=== PATIENT | male | born 1950 | race Caucasian/White ===

== ENCOUNTER 2019-09-19 19:59 | Inpatient (IN) | payer OTHER ==
--- OUTSIDE RECORDS SUMMARY | 2019-09-19 20:01 | XMS REPORT ---
:1950 [facility] Address [address] [place] [address] Care Team Providers Name Role Phone Unavailable Unavailable Unavailable Payers Payer Name Policy Type Policy Number Effective Date Expiration Date Problems This patient has no known problems. Allergies, Adverse Reactions, Alerts Allergy Name Allergy Status Severity Reaction(s) Onset Inactive Treating Comments Type Date Date Clinician Penicillins DA Active U 2014-03 00:00:0 0 Tetanus DA Active U 2014-03 Toxoid 00:00:0 0 Medications This patient has no known medications.
[2019-09-19] MEDS ORDERED: NA CHLORIDE 0.9% 1,000 ML ONE (20:40)
[2019-09-19 21:27] LABS: Absolute Lymphocytes (CBC) 0.6 K/uL (0.7-4.9); Basophils % 0.4 % (0-1.3); Hematocrit 41.1 % (39.6-49.0); Lymphocytes % 8.5 % (15.3-44.8); MPV 10.1 fL (7.6-11.3); RBC Red Blood Cell Count 4.35 M/uL (4.33-5.43)
--- NOTE | 2019-09-19 21:40 | RAD REPORT ---
EXAM DESCRIPTION: Jesusita Single View09/19/2019 8:52 pm CLINICAL HISTORY: Chest pain COMPARISON: none FINDINGS: The lungs appear clear of acute infiltrate. The heart is borderline enlarged IMPRESSION: No acute abnormalities displayed
[2019-09-19 21:43] LABS: Protime INR 2.59
[2019-09-19 21:44] LABS: ALT/SGPT 19 U/L (12-78); AST/SGOT 19 U/L (15-37); Albumin 3.6 g/dL (3.4-5.0); Alkaline Phosphatase 77 U/L (45-117); BUN Blood Urea Nitrogen 17 mg/dL (7-18); Bicarbonate 27 mmol/L (21-32); Bilirubin Direct 0.4 mg/dL (0-0.2); Bilirubin Total 1.6 mg/dL (0.2-1.0); Glucose Level 105 mg/dL (74-106); Magnesium 1.9 mg/dL (1.8-2.4); NT PRO-BNP 6781 pg/mL (<125); Protein, Total 6.8 g/dL (6.4-8.2); Sodium Level 136 mmol/L (136-145); Troponin (Emerg Dept Use Only) < 0.02 ng/mL (0.0-0.045)
[2019-09-19 21:45] LABS: CKMB Creatine Kinase MB < 1.0 ng/mL (0.3-3.6); Creatine Phosphokinase 152 U/L (39-308); Lipase 36 U/L (73-393)
--- NOTE | 2019-09-19 23:16 | ER ---
Nurse's Notes [facility] Name: Selvin Krause Jr Age: 69 yrs Sex: Male : 1950 Arrival Date: 09/19/2019 Time: 20:06 Bed 20 Private MD: Diagnosis: Altered mental status, unspecified Presentation: 09/19 20:20 Presenting complaint: EMS states: family member reported the patient having the rr5 generalized weakness around 0930 am today. not ambulatory having the tremors feels warm. He is AOx4 T 99.0 F on oral. hooked to oxygen at at 2 liter via nasal cannula and with IV cannula G 20 at right wrist. 20:20 Transition of care: patient was not received from another setting of care. Onset of rr5 symptoms was September 19, 2019 at 09:30. Risk Assessment: Do you want to hurt yourself or someone else? Patient reports no desire to harm self or others. Initial Sepsis Screen: Does the patient meet any 2 criteria? RR > 20 per min. HR > 90 bpm. Yes Does the patient have a suspected source of infection? Yes: Productive cough/pneumonia. Note per EMS patient taking blood thinner had history of stroke 1 year ago and hospital DNR. patient's heart working only 20% refused to have cardiac defibrillator. [id number]. he is on hospital DNR. Care prior to arrival: None. 20:20 Method Of Arrival: EMS: [facility] rr5 20:20 Acuity: KWAME 2 rr5 Historical: - Allergies: 20:25 PENICILLINS; rr5 20:25 Tetanus Vaccines \T\ Toxoid; rr5 - Home Meds: 20:25 on blood thinners [Active]; rr5 - PMHx: 20:25 CHF; Diabetes - NIDDM; hypotension; rr5 - PSHx: 20:25 Angioplasty; rr5 - Immunization history:: Adult Immunizations up to date. - Social history:: Smoking status: Patient uses tobacco products, smokes two packs cigarettes per day. Patient uses alcohol, on a daily basis. Patient/guardian denies using street drugs. - Ebola Screening: : Patient negative for fever greater than or equal to 101.5 degrees Fahrenheit, and additional compatible Ebola Virus Disease symptoms Patient denies exposure to infectious person Patient denies travel to an Ebola-affected area in the 21 days before illness onset. Screenin:20 VAN Screening: Arm Drift: Patient shows no arm weakness. Patient is VAN negative. rr5 20:20 Abuse screen: Denies threats or abuse. Denies injuries from another. Nutritional rr5 screening: No deficits noted. Tuberculosis screening: No symptoms or risk factors identified. Fall Risk IV access (20 points). Mental Status- Overestimates/Forgets Limitations (15 pts.). Total Cash Fall Scale indicates No Risk (0-24 pts). Assessment: 20:25 General: Appears in no apparent distress. uncomfortable, Behavior is calm, cooperative. rr5 20:25 Pain: Denies pain. Neuro: Level of Consciousness is awake, alert, obeys commands, rr5 Oriented to person, Moves all extremities. Speech is normal, Facial symmetry appears normal, tremors noted. Reports weakness in generalized unable to ambulate. Cardiovascular: Capillary refill < 3 seconds Patient's skin is warm and dry. Respiratory: Airway is patent Respiratory effort is even, unlabored, Respiratory pattern is tachypnea Parent/caregiver reports the patient having cough that is. GI: No signs and/or symptoms were reported involving the gastrointestinal system. : No signs and/or symptoms were reported regarding the genitourinary system. EENT: No signs and/or symptoms were reported regarding the EENT system. Derm: Skin is fragile, is thin, Skin temperature is warm Bruising that is dark purple, on right arm and left arm. Musculoskeletal: Capillary refill < 3 seconds. 20:55 Reassessment: ED provider ordered to infused 1 liter of NS not the whole sepsis rr5 protocol fluid. 21:30 Reassessment: Patient appears in no apparent distress at this time. No changes from rr5 previously documented assessment. awaiting for results. 22:30 Reassessment: Patient appears in no apparent distress at this time. Patient and/or rr5 family updated on plan of care and expected duration. Pain level reassessed. Patient is alert, oriented x 3, equal unlabored respirations, skin warm/dry/pink. ED provider added ammonia level blood extracted and sent. patient is more alert and not in distress noted. 23:20 Reassessment: Patient appears in no apparent distress at this time. Patient is alert, rr5 oriented x 3, equal unlabored respirations, skin warm/dry/pink. for CT scan of the head. Patient states symptoms have improved. 23:37 Reassessment: Patient and/or family updated on plan of care and expected duration. Pain rr5 level reassessed. family member contact number. [phone] velma ( x and has the power of state attorney), [phone] daniel daughter. 09/20 00:25 Reassessment: Patient appears in no apparent distress at this time. Patient is alert, rr5 oriented x 3, equal unlabored respirations, skin warm/dry/pink. for admission awaiting for room assignment. Patient states symptoms have improved. Vital Signs: 09/19 20:25 BP 110 / 57; Pulse 98; Resp 24; Temp 100; Pulse Ox 98% on 2 lpm NC; Weight 49.9 kg; rr5 Height 5 ft. 2 in. (157.48 cm); Pain 0/10; 21:18 BP 98 / 52; Pulse 95; Resp 23; Pulse Ox 99% on 2 lpm NC; rr5 22:00 BP 99 / 59; Pulse 102; Resp 24; Temp 99.5; Pulse Ox 100% on 2 lpm NC; rr5 23:00 BP 96 / 55; Pulse 90; Resp 18; Pulse Ox 98% on 2 lpm NC; rr5 09/20 00:00 BP 101 / 56; Pulse 92; Resp 20; Temp 99.5; Pulse Ox 98% on 2 lpm NC; rr5 00:56 BP 104 / 63; Pulse 95; Resp 21; Temp 99.2; Pulse Ox 99% on 2 lpm NC; Pain 0/10; rr5 01:30 BP 101 / 53; Pulse 86; Resp 22; Temp 99.2; Pulse Ox 98% on 2 lpm NC; rr5 09/19 20:25 Body Mass Index 20.12 (49.90 kg, 157.48 cm) rr5 Arnie Coma Score: 09/19 20:25 Eye Response: spontaneous(4). Verbal Response: confused(4). Motor Response: obeys rr5 commands(6). Total: 14. 09/20 00:00 Eye Response: spontaneous(4). Verbal Response: confused(4). Motor Response: obeys rr5 commands(6). Total: 14. 01:30 Eye Response: spontaneous(4). Verbal Response: confused(4). Motor Response: obeys rr5 commands(6). Total: 14. ED Course: 09/19 20:06 Patient arrived in ED. tw4 20:10 Arnold Oliva MD is Attending Physician. tw4 20:20 Shadi Pandya, RN is Primary Nurse. rr5 20:20 Patient has correct armband on for positive identification. Placed in gown. Bed in low rr5 position. Call light in reach. Side rails up X2. Adult w/ patient. monitor technician on. Pulse ox on. NIBP on. 20:20 Arm band placed on. rr5 20:21 Maintain EMS IV. Dressing intact. Good blood return noted. Site clean \T\ dry. Gauge \T\ rr 5 site: G20 right wrist. 20:25 EKG done, by ED staff, reviewed by Arnold Oliva MD. rr5 20:25 Oxygen administration via nasal cannula \T\ 2L/min Response to oxygen therapy: symptoms rr5 improved. 20:31 Triage completed. rr5 20:53 XRAY Chest (1 view) In Process Unspecified. EDMS 21:05 Inserted saline lock: 20 gauge in right forearm, using aseptic technique. Blood rr5 collected. 21:05 Initial lab(s) drawn, by me, sent to lab. First set of blood cultures drawn by me. rr5 23:15 Bob Rosenbaum MD is Hospitalizing Provider. tw4 09/20 00:03 CT completed. Patient tolerated procedure well. Patient moved to CT via stretcher. Patient moved back from CT. 00:16 CT Head Brain wo Cont In Process Unspecified. EDMS 01:31 No provider procedures requiring assistance completed. Patient admitted, IV remains in rr5 place. intact, No redness/swelling at site. Administered Medications: 09/19 21:05 Drug: NS 0.9% (30 ml/kg) 30 ml/kg Route: IV; Rate: bolus; Site: right forearm; rr5 23:31 Follow up: Response: No adverse reaction; IV Status: Order to discontinue infusion; IV rr5 Intake: 1000ml Intake: 23:31 IV: 1000ml; Total: 1000ml. rr5 Output: 21:30 Urine: 400ml (Voided); Total: 400ml. rr5 Outcome: 23:16 Decision to Hospitalize by Provider. tw4 12/19 01:40 Admitted to Med/surg accompanied by tech, via wheelchair, room 211, with oxygen, with rr5 chart, Report called to verito Condition: stable Instructed on the need for admit. 02:12 Patient left the ED. rr5 Signatures: Dispatcher [employer] Tristen Dooley Terrence, MD MD tw4 Shadi Pandya RN RN rr5 Corrections: (The following items were deleted from the chart) 09/19 20:46 20:25 BP 110 / 57; Pulse 98bpm; Resp 24bpm; Pulse Ox 98% RA; Temp 100F; 49.9 kg; Height rr5 5 ft. 2 in.; BMI: 20.1; Pain 0/10; rr5 21:41 21:18 BP 68 / 52; Pulse 95bpm; Resp 23bpm; Pulse Ox 99% 2 lpm Nasal Cannula; rr5 rr5 09/20 01:40 09/19 20:25 GCS: 15, rr5 rr5 09/20 01:40 01:30 GCS: 15, rr5 rr5 :40 00:00 GCS: 15, rr5 rr5 01:40 09/19 20:25 Neuro: Level of Consciousness is awake, alert, Oriented to person, place, rr5 time, situation, Moves all extremities. Speech is normal, Facial symmetry appears normal, tremors noted. Reports weakness in generalized unable to ambulate. rr5
[2019-09-19 23:17] LABS: Urine Bacteria <20 /HPF (NONE SEEN); Urine Culture Reflex Order NOT NEEDED; Urine Mucus 1+ /HPF (NONE SEEN)
--- NOTE | 2019-09-19 23:17 | EDPHYS ---
Physician Documentation [facility] Name: Selvin Krause Jr Age: 69 yrs Sex: Male : 1950 Arrival Date: 09/19/2019 Time: 20:06 Bed 20 Private MD: ED Physician Arnold Oliva HPI: 09/20 03:39 This 69 yrs old Male presents to ER via EMS with complaints of General tw4 Weakness. 03:39 The patient presents with decreased mental status, decreased responsiveness. Onset: The tw4 symptoms/episode began/occurred today. Possible causes: sepsis, liver cirrhosis. Associated signs and symptoms: Pertinent positives: dizziness, weakness. Current symptoms: In the emergency department the patient's symptoms are unchanged from the initial presentation. Patient's baseline: Neuro: alert and fully oriented, Motor: no deficits, Ambulation: walks with assist only. The patient has experienced similar episodes in the past, a few times. Historical: - Allergies: 09/19 20:25 PENICILLINS; rr5 20:25 Tetanus Vaccines \T\ Toxoid; rr5 - Home Meds: 20:25 on blood thinners [Active]; rr5 - PMHx: 20:25 CHF; Diabetes - NIDDM; hypotension; rr5 - PSHx: 20:25 Angioplasty; rr5 - Immunization history:: Adult Immunizations up to date. - Social history:: Smoking status: Patient uses tobacco products, smokes two packs cigarettes per day. Patient uses alcohol, on a daily basis. Patient/guardian denies using street drugs. - Ebola Screening: : Patient negative for fever greater than or equal to 101.5 degrees Fahrenheit, and additional compatible Ebola Virus Disease symptoms Patient denies exposure to infectious person Patient denies travel to an Ebola-affected area in the 21 days before illness onset. ROS: 09/20 03:39 Constitutional: Negative for fever, chills, and weight loss, Eyes: Negative for injury, tw4 pain, redness, and discharge, Cardiovascular: Negative for chest pain, palpitations, and edema, Respiratory: Negative for shortness of breath, cough, wheezing, and pleuritic chest pain, Abdomen/GI: Negative for abdominal pain, nausea, vomiting, diarrhea, and constipation, Back: Negative for injury and pain, MS/Extremity: Negative for injury and deformity, Skin: Negative for injury, rash, and discoloration. Neuro: Positive for altered mental status, weakness. Exam: 03:39 Constitutional: This is a well developed, well nourished patient who is awake, alert, tw4 and in no acute distress. Head/Face: Normocephalic, atraumatic. Chest/axilla: Normal chest wall appearance and motion. Nontender with no deformity. No lesions are appreciated. Cardiovascular: Regular rate and rhythm with a normal S1 and S2. No gallops, murmurs, or rubs. Normal PMI, no JVD. No pulse deficits. Respiratory: Lungs have equal breath sounds bilaterally, clear to auscultation and percussion. No rales, rhonchi or wheezes noted. No increased work of breathing, no retractions or nasal flaring. 03:39 Neuro: Orientation: to person, Mentation: slow to respond, confused, Motor: moves all fours, resting tremor right upper extremity . Vital Signs: 09/19 20:25 BP 110 / 57; Pulse 98; Resp 24; Temp 100; Pulse Ox 98% on 2 lpm NC; Weight 49.9 kg; rr5 Height 5 ft. 2 in. (157.48 cm); Pain 0/10; 21:18 BP 98 / 52; Pulse 95; Resp 23; Pulse Ox 99% on 2 lpm NC; rr5 22:00 BP 99 / 59; Pulse 102; Resp 24; Temp 99.5; Pulse Ox 100% on 2 lpm NC; rr5 23:00 BP 96 / 55; Pulse 90; Resp 18; Pulse Ox 98% on 2 lpm NC; rr5 09/20 00:00 BP 101 / 56; Pulse 92; Resp 20; Temp 99.5; Pulse Ox 98% on 2 lpm NC; rr5 00:56 BP 104 / 63; Pulse 95; Resp 21; Temp 99.2; Pulse Ox 99% on 2 lpm NC; Pain 0/10; rr5 01:30 BP 101 / 53; Pulse 86; Resp 22; Temp 99.2; Pulse Ox 98% on 2 lpm NC; rr5 09/19 20:25 Body Mass Index 20.12 (49.90 kg, 157.48 cm) rr5 Clyde Coma Score: 09/19 20:25 Eye Response: spontaneous(4). Verbal Response: confused(4). Motor Response: obeys rr5 commands(6). Total: 14. 09/20 00:00 Eye Response: spontaneous(4). Verbal Response: confused(4). Motor Response: obeys rr5 commands(6). Total: 14. 01:30 Eye Response: spontaneous(4). Verbal Response: confused(4). Motor Response: obeys rr5 commands(6). Total: 14. MDM: 09/19 20:10 Patient medically screened. tw09/20 03:44 Differential Diagnosis: CVA, electrolyte abnormality, intracranial bleed, meningitis, tw4 pneumonia. Data reviewed: vital signs, nurses notes. Data interpreted: Pulse oximetry: Interpretation: normal. Test interpretation: by ED physician or midlevel provider: ECG. Counseling: I had a detailed discussion with the patient and/or guardian regarding: the historical points, exam findings, and any diagnostic results supporting the discharge/admit diagnosis, lab results, radiology results. Physician consultation: Bob Rosenbaum MD regarding admission, to the telemetry unit. patient's condition, and will see patient in inpatient room. 09/19 20:10 Order name: Basic Metabolic Panel; Complete Time: 21:56 09/19 21:56 Interpretation: Normal except: GFR 69; CA 8.4. 09/19 20:10 Order name: CBC with Diff; Complete Time: 21:56 09/19 21:56 Interpretation: Normal except: TAMMIE% 83.0; PLT 119; LYM% 8.5. 09/19 20:10 Order name: LFT's; Complete Time: 21:56 09/19 21:57 Interpretation: Normal except: BILIT 1.6; BILID 0.4. 09/19 20:10 Order name: Magnesium; Complete Time: 21:56 [facility] 09/19 21:57 Interpretation: Within normal limits: MG 1.9. 09/19 20:10 Order name: NT PRO-BNP; Complete Time: 21:56 tw 09/19 21:57 Interpretation: Normal except: NT PRO-BNP 6781. 09/19 20:10 Order name: PT-INR; Complete Time: 21:56 09/19 21:57 Interpretation: Normal except: PT 29.5. tw4 09/19 20:10 Order name: Troponin (emerg Dept Use Only); Complete Time: 21:56 [facility] 09/19 21:57 Interpretation: Within normal limits: TROPED < 0.02. [facility] 09/19 20:32 Order name: Blood Culture Adult (2) [facility] 09/19 20:32 Order name: Ckmb; Complete Time: 21:56 rr 09/19 21:57 Interpretation: Within normal limits: CKMB < 1.0. [facility] 09/19 20:32 Order name: CPK; Complete Time: 21:56 [facility] 09/19 21:58 Interpretation: Within normal limits: CPK 152. [facility] 09/19 20:32 Order name: Lactate; Complete Time: 21:56 [facility] 09/19 21:58 Interpretation: Within normal limits: LAC 1.6. [facility] 09/19 20:32 Order name: Lipase; Complete Time: 21:56 [facility] 09/19 21:57 Interpretation: Normal except: LIP 36. [facility] 09/19 20:32 Order name: Procalcitonin [facility] 09/19 20:32 Order name: Ptt, Activated [facility] 09/19 20:10 Order name: XRAY Chest (1 view) [facility] 09/19 20:32 Order name: Urine Microscopic Only [facility] 09/19 21:58 Order name: AMMONIA [facility] 09/19 21:59 Order name: Ammonia; Complete Time: 23:14 EDMS 09/19 23:14 Interpretation: Abnormal. [facility] 09/19 22:48 Order name: Urine Dipstick--Ancillary (enter results) [facility] 09/19 23:15 Order name: CT Head Brain wo Cont tw4 09/20 00:50 Order name: CBC with Automated Diff EDMS 09/20 00:50 Order name: CBC with Automated Diff EDMS 09/20 00:50 Order name: CBC with Automated Diff EDMS 09/20 00:50 Order name: Comprehensive Metabolic Panel EDMS 09/20 00:50 Order name: Comprehensive Metabolic Panel EDMS 09/20 00:50 Order name: Comprehensive Metabolic Panel EDMS 09/20 00:50 Order name: Protime (+INR) EDMS 09/20 00:50 Order name: Protime (+INR) EDMS 09/20 00:50 Order name: PTT, Activated Partial Thromb EDMS 09/20 00:50 Order name: PTT, Activated Partial Thromb EDMS 09/19 20:10 Order name: EKG; Complete Time: 20:11 tw4 09/19 20:10 Order name: Cardiac monitoring; Complete Time: 20:49 tw4 09/19 20:10 Order name: EKG - Nurse/Tech; Complete Time: 20:49 tw4 09/19 20:10 Order name: IV Saline Lock; Complete Time: 21:14 tw4 09/19 20:10 Order name: Labs collected and sent; Complete Time: 20:49 tw4 09/19 20:10 Order name: O2 Per Protocol; Complete Time: 20:49 tw4 09/19 20:10 Order name: O2 Sat Monitoring; Complete Time: 20:50 tw4 09/19 20:32 Order name: Accucheck; Complete Time: 21:14 rr5 09/19 20:32 Order name: IV Saline Lock - Large Bore; Complete Time: 20:49 rr5 09/19 20:32 Order name: Urine Dipstick-Ancillary (obtain specimen); Complete Time: 22:40 rr5 09/20 00:50 Order name: CONS Pharmacy Consult EDMS 09/20 00:50 Order name: Heart Healthy EDMS EC:39 Rate is 98 beats/min. Rhythm is irregularly irregular, A fib. QRS [place] is Normal. [place] tw4 interval is normal. QRS interval is normal. QT interval is normal. No Q waves. T waves are Flattened in leads V3, V4, V5, V6. No ST changes noted. Clinical impression: NSR w/ Non-specific ST/T Changes and Atrial Fibrillation. Interpreted by me. Reviewed by me. Administered Medications: 09/19 21:05 Drug: NS 0.9% (30 ml/kg) 30 ml/kg Route: IV; Rate: bolus; Site: right forearm; rr5 23:31 Follow up: Response: No adverse reaction; IV Status: Order to discontinue infusion; IV rr5 Intake: 1000ml Disposition: 09/19/19 23:16 Hospitalization ordered by Bob Rosenbaum for Inpatient Admission. Preliminary diagnosis is Altered mental status, unspecified. - Bed requested for Telemetry/MedSurg (Inpatient). - Status is Inpatient Admission. rr5 - Condition is Stable. - Problem is new. - Symptoms are unchanged. UTI on Admission? No Signatures: Dispatcher [employer] EDMS Martha Zendejas RN RN tl1 Arnold Oliva MD MD tw4 Shadi Pandya RN RN rr5 Corrections: (The following items were deleted from the chart) 09/20 01:21 09/19 23:16 Hospitalization Ordered by Bob Rosenbaum MD for Inpatient Admission. tl1 Preliminary diagnosis is Altered mental status, unspecified. Bed requested for Telemetry/MedSurg (Inpatient). Status is Inpatient Admission. Condition is Stable. Problem is new. Symptoms are unchanged. UTI on Admission? No. tw4 09/20 02:12 01:21 09/19/2019 23:16 Hospitalization Ordered by Bob Rosenbaum MD for Inpatient rr5 Admission. Preliminary diagnosis is Altered mental status, unspecified. Bed requested for Telemetry/MedSurg (Inpatient). Status is Inpatient Admission. Condition is Stable. Problem is new. Symptoms are unchanged. UTI on Admission? No. tl1
[2019-09-19 23:18] LABS: Urine Blood 2+ (NEG); Urine Glucose NEGATIVE (NEG); Urine Protein NEGATIVE (NEG); Urine Specific Gravity 1.025 (1.005-1.030); Urine pH 5.5 (5.0-7.0)
[2019-09-20] MEDS ORDERED: ONDANSETRON 4 MG/2 ML VIAL IV PRN (00:45)
[2019-09-20] MEDS ORDERED: MORPHINE 2 MG/ML SYR IV PRN (00:45)
[2019-09-20] MEDS: ACETAMINOPHEN 500 MG TAB PO PRN ×2 (02:33→11:04)
[2019-09-20 05:38] LABS: Absolute Lymphocytes (CBC) 0.7 K/uL (0.7-4.9); Basophils % 0.3 % (0-1.3); Lymphocytes % 10.2 % (15.3-44.8); MPV 10.4 fL (7.6-11.3); RBC Red Blood Cell Count 3.72 M/uL (4.33-5.43)
[2019-09-20 05:51] LABS: Albumin 3.1 g/dL (3.4-5.0); Bilirubin Total 1.5 mg/dL (0.2-1.0); Potassium 3.8 mmol/L (3.5-5.1); Protein, Total 5.9 g/dL (6.4-8.2)
[2019-09-20 08:56] LABS: Blood Morphology Comment NOT SEEN (NOT SEEN); Platelet Estimate DECR
--- NOTE | 2019-09-20 08:59 | P.HP ---
Certification for Inpatient Patient admitted to: Observation Patient will require the following post-hospital care: Alf Practitioner: I am a practitioner with admitting privileges, knowledge of patient current condition, hospital course, and medical plan of care. Services: Services provided to patient in accordance with Admission requirements found in Title 42 Section 412.3 of the Code of Federal Regulations Patient History Date of Service: 09/20/19 Reason for admission: Altered mental status History of Present Illness: Patient is a 69-year-old gentleman who came to the hospital with generalized weakness. He states his symptoms started around 9 o'clock this morning. He has been having tremors. Patient with numerous comorbidities including a hemorrhagic stroke her bands cardiomyopathy. Patient has an ejection fraction of 20% patient also has a DNR status. Patient was given IV fluids in the ER and is starting to feel better. Patient does not remember his tremors being so poorly controlled. He has never been diagnosed with Parkinson's or any other pathology. This time patient will be admitted to the hospital for further evaluation. Allergies Penicillins Allergy (Verified 09/20/19 01:20) Anaphylaxis Tetanus Vaccines and Toxoid Allergy (Verified 09/20/19 01:20) Anaphylaxis - Past Medical/Surgical History Has patient received pneumonia vaccine in the past: No Diabetic: Yes -: CHF -: Type 2 diabetes -: hypotension -: angioplasty - Family History Father Family History: Reviewed- Non-Contributory - Social History Smoking Status: Current every day smoker Alcohol use: No CD- Drugs: No Caffeine use: Yes Place of Residence: Home Review of Systems 10-point ROS is otherwise unremarkable Physical Examination - Vital Signs Temperature: 99.7 F Blood Pressure: 96/55 Pulse: 93 Respirations: 18 Pulse Ox (%): 95 - Physical Exam General: Alert, In no apparent distress, Oriented x2 HEENT: Atraumatic, PERRLA, Mucous membr. moist/pink, EOMI, Sclerae nonicteric Neck: Supple, 2+ carotid pulse no bruit, No LAD, Without JVD or thyroid abnormality Respiratory: Clear to auscultation bilaterally, Normal air movement Cardiovascular: Regular rate/rhythm, Normal S1 S2, Systolic murmur Gastrointestinal: Normal bowel sounds, Soft and benign, Non-distended, No tenderness Musculoskeletal: No clubbing, No swelling, No tenderness Integumentary: No rashes Neurological: Normal speech, Sensation intact, Cranial nerves 3-12 intact, Normal affect, Abnormal gait, Abnormal strength, Abnormal tone Lymphatics: No axilla or inguinal lymphadenopathy - Studies Laboratory Data (last 24 hrs) 09/19/19 21:05: Lipase 36 L 09/19/19 21:05: PT 29.5 H, INR 2.59 09/19/19 21:05: WBC 7.5, Hgb 14.0, Hct 41.1, Plt Count 119 L 09/19/19 21:05: Sodium 136, Potassium 4.0, BUN 17, Creatinine 1.06, Glucose 105 , Magnesium 1.9, Total Bilirubin 1.6 H, AST 19, ALT 19, Alkaline Phosphatase 77 09/19/19 20:32: APTT 39.5 H Assessment & Plan - Problems (Diagnosis) (1) Altered mental status Current Visit: Yes Status: Acute (2) Generalized weakness Current Visit: Yes Status: Acute (3) History of hemorrhagic stroke with residual hemiparesis Current Visit: Yes Status: Acute (4) Cardiomyopathy Current Visit: Yes Status: Acute (5) Cardiac LV ejection fraction <20% Current Visit: Yes Status: Acute - Plan Plan: 1. IV hydration 2. Neuro checks q.4 3. Physical therapy evaluation 4. Continue with cardiac meds 5. May use a low-dose beta-len for his tremors 6. Continue monitoring labs closely 7. Continue with cardiac meds and strict blood pressure and blood sugar control 8. GI and DVT prophylaxis Discharge Plan: Home Plan to discharge in: 48 Hours - Advance Directives Does patient have a Living Will: No Does patient have a Durable POA for Healthcare: Yes - Code Status/Comfort Care Code Status Assessed: Yes Code Status: Do Not Attempt Resuscitat Critical Care: No Time Spent Managing PTS Care (In Minutes): 45
--- NOTE | 2019-09-20 10:53 | RAD REPORT ---
EXAM DESCRIPTION: CT - Head Brain Wo Cont - 09/20/2019 1:27 am CLINICAL HISTORY: The patient is 69 years old and is Male; CONFUSED. TECHNIQUE: Axial computed tomography images of the head/brain without intravenous contrast. Sagitt al and coronal reformatted images were created and reviewed. This CT exam was performed using one o r more of the following dose reduction techniques: automated exposure control, adjustment of the mA and/or kV according to patient size, and/or use of iterative reconstruction technique. COMPARISON: No relevant prior studies available. FINDINGS: BRAIN: There is diffuse cerebral atrophy present, consistent with this patient's age. There is patchy hypoattenuation of the deep white matter which is non-specific, but most likely owing to chronic small vessel ischemic change in a patient of this age group. No intracranial hemorrhage , mass effect, or midline shift is seen. There are no extra-axial fluid collections. VENTRICLES: Unremarkable. No ventriculomegaly. BONES/JOINTS: No acute fracture. SOFT TISSUES: Unremarkable. SINUSES: Unremarkable as visualized. No acute sinusitis. MASTOID AIR CELLS: Unremarkable as visualized. No mastoid effusion. ORBITS: Unremarkable as visualized. IMPRESSION: No acute intracranial findings. Electronically signed by: Pauline Saleh MD 09/20/2019 12:10 AM VICE PRESIDENT [employer]AL[employer]ANCE Due to temporary technical issues with the PACS/Fluency reporting system, reports are being signed by the in house radiologist as a courtesy to ensure prompt reporting. The interpreting radiologist is f ully responsible for the content of the report.
[2019-09-20] MEDS ORDERED: CODEINE 30MG/APAP 300MG TAB PO PRN (12:02)
[2019-09-20] MEDS: DIGOXIN 0.125 MG TABLET PO SCH (12:03)
[2019-09-20] MEDS: RIVAROXABAN 20 MG TABLET PO SCH (12:04)
--- NOTE | 2019-09-20 12:18 | P.PN ---
Date of Service: 09/20/19 Patient seen and examined. Family are concerned of his sudden weakness and increasing tremors. Baseline history severe systolic heart failure, EF 20%, patient refused AICD placement in the past. History alcoholic liver disease and tremors. History of atrial fibrillation on Xarelto. Resting, pill rolling tremors on extremities noted The patient is awake and alert at the moment. He is not confused. He denies any asymmetric weakness. Soft blood pressure noted Plan: Continue Xarelto Aspirin Digoxin for afib Hold metoprolol due to borderline hypotension Neurology consult MRI of the brain requested.
--- NOTE | 2019-09-20 12:43 | EKG ---
Test Date: 2019-09-19 Test Time: 20:18:18 Enterprise Account Manager: HELDER MEASUREMENT RESULTS: Intervals: Rate: 98 IA: QRSD: 102 QT: 360 QTc: 459 [place]: P: IA: QRS: 18 T: 70 INTERPRETIVE STATEMENTS: Atrial fibrillation Low voltage QRS Cannot rule out Anterior infarct, age undetermined Abnormal ECG Compared to ECG 10/01/2000 23:35:00 Low QRS voltage now present Sinus bradycardia no longer present T-wave abnormality no longer present Possible ischemia no longer present Myocardial infarct finding still present Electronically Signed On 09-20-19 12:41:41 RESIDENTIAL LIVING ASSISTANT by Kushal Andino
[2019-09-20] MEDS ORDERED: THIAMINE HCL 100 MG TABLET PO SCH (14:24)
[2019-09-20] MEDS ORDERED: FOLIC ACID 1 MG TABLET PO SCH (14:26)
[2019-09-20] MEDS ORDERED: FOLIC ACID 1 MG, MULTIVITAMINS INJ 10 ML, THIAMINE HCL 100 MG in NA CHLORIDE 0.9% 1,000 ML IV SCH (15:00)
--- NOTE | 2019-09-20 15:11 | RAD REPORT ---
EXAM DESCRIPTION: MRI - Brain Wo Cont - 09/20/2019 2:46 pm CLINICAL HISTORY: Fall and weakness, r/o CVA. Headache, drowsiness COMPARISON: Head Brain Wo Cont dated 09/19/2019 TECHNIQUE: Multi-sequence, multiplanar MR imaging of the brain was performed without contrast. FINDINGS: No intracranial hemorrhage, hydrocephalus or extra-axial fluid collections.Mild generalize d brain atrophy is seen. No edema or shift of midline structures. No findings to suspect brain mass.A dipesh of gliosis is seen left parietal lobe suspicious for remote infarct. DWI is negative for acute CV A. Midline structures are normally formed. Mastoid air cells and paranasal sinuses are clear. IMPRESSION: Negative for acute CVA or other acute intracranial finding.
[2019-09-20] MEDS ORDERED: FOLIC ACID 1 MG, MULTIVITAMINS INJ 10 ML, THIAMINE HCL 100 MG in NA CHLORIDE 0.9% 1,000 ML IV ONE (16:00)
[2019-09-20 16:32] LABS: Arterial Blood Carboxyhemoglob 0.5 % (0-1.5); Blood Gas Oxyhemoglobin 98.1 % (94-97); Blood O2 Saturation 99.1 % (92-98.5)
[2019-09-20] MEDS ORDERED: IPRATROPIUM BROM 0.5MG/2.5ML ONE (16:55)
[2019-09-20] MEDS ORDERED: FUROSEMIDE 40 MG/4 ML VIAL IV ONE (17:00)
[2019-09-20] MEDS ORDERED: IPRATROPIUM BROM 0.5MG/2.5ML NEB ONE (17:00)
[2019-09-20] MEDS ORDERED: LORazepam 2 MG/ML VIAL IV ONE (17:05)
[2019-09-20] MEDS ORDERED: LORazepam 2 MG/ML VIAL ONE (17:07)
--- NOTE | 2019-09-20 17:14 | RAD REPORT ---
EXAM DESCRIPTION: RAD - Chest Single View - 09/20/2019 4:24 pm CLINICAL HISTORY: SOB Chest pain. COMPARISON: Chest Single View dated 09/19/2019; Brain Wo Cont dated 09/20/2019; Head Brain Wo Cont d ated 09/19/2019 FINDINGS: Portable technique limits examination quality. Bilateral pulmonary opacities are noted suspicious for pulmonary edema. The heart is mildly enlarged in size. No displaced fractures. IMPRESSION: Mild CHF versus volume overload suspected.
[2019-09-20] MEDS: METHYLPREDNISOLONE 40 MG INJ IV SCH ×2 (17:33→23:37)
[2019-09-20] MEDS ORDERED: dilTIAZem HCL 50 MG/10 ML VIAL IV ONE (17:45)
[2019-09-20 17:53] LABS: Urine Appearance CLEAR; Urine Bilirubin NEGATIVE (NEG); Urine Blood 1+ (NEG); Urine Color DK YELLOW; Urine Glucose NEGATIVE (NEG); Urine Protein NEGATIVE (NEG); Urine Specific Gravity 1.015 (1.005-1.030); Urine pH 5.5 (5.0-7.0)
[2019-09-20 17:57] LABS: Urine Microscopic Reflex ORDER UMIC
[2019-09-20] MEDS ORDERED: METOPROLOL TAR 25 MG TAB PO SCH ×2 (18:00→19:11)
[2019-09-20 18:39] LABS: Urine Bacteria 20-50 /HPF (NONE SEEN); Urine Culture Reflex Order NOT NEEDED; Urine Mucus 1+ /HPF (NONE SEEN)
[2019-09-20] MEDS ORDERED: DILTIAZEM INJ 125 MG in NA CHLORIDE 0.9% 100 ML IVPB PRN (19:06)
[2019-09-20] MEDS ORDERED: dilTIAZem HCL 25 MG/5 ML VIAL IV ONE (19:31)
[2019-09-20] MEDS ORDERED: NA CHLORIDE 0.9% 100 ML ONE (19:32)
[2019-09-20] MEDS: ALBUTEROL 2.5 MG/3 ML NEB SOL NEB SCH (20:00)
[2019-09-20] MEDS: IPRATROPIUM BROM 0.5MG/2.5ML NEB SCH (20:05)
--- NOTE | 2019-09-20 20:39 | CON ---
Reason For Consultation: Consultation called because of tremors. History Of Present Illness: Mr. Krause is a 69-year-old right-handed patient with type 2 diabetes mellitus, congestive heart failure, and a very long history of heavy alcohol abuse. He come s in with tremors and inability to maintain his balance. The patient admits to drinking at least a f ifth of alcohol and 12 perhaps up to 24 beers on a daily basis. He said he has been doing that for a bout 50 years. He says he does not miss days of drinking and his last drink was 3 days ago prior to his hospitalization. He admits to a progressive tremor probably 10 years in duration, first on the l eft upper extremity, then progressed to the right upper extremity, and may involve his lower extremit ies. However, over the last few weeks, he has got to the point is very difficult to stand and mainta in his balance because of the shaking along with the instability of his gait. He says he is now walk ing about a fourth of the speed that he did about 5 or so years ago. He reports having a stroke this summer that left him as this was a hemorrhagic stroke that left him with left arm and leg weakness, from which within a week he said he recovered back to normal. He does have a history of congestive h eart failure with an ejection fraction down to about 20%, and he has do not resuscitate status. Past Medical History: As indicated. Surgical History: Angioplasty. Allergies: PENICILLIN AND TETANUS VACCINE. Family History: Noncontributory. Denies history of tremors or Parkinson's or essential tremor in th e family. Social History: The patient smokes of 2 packs of cigarettes daily. He drinks a fifth of alcohol elie und 12 to 24 beers on a daily basis if he can get it and he says he does not plan to stop drinking an d as soon as he gets out of hospital he says he is ready to just restart his drinking. He did deny a lcohol withdrawal symptoms in the past or alcohol blackouts or delirium tremens. Review of Systems: As mentioned above aside from that, no recent fevers or chills, myalgias, arthralgias. No rash. No headache or other positives. Physical Examination: Vital Signs: Blood pressure 100/55, down to 96/55, pulse 75 to 93, respiratory rate 15 to 18, temper ature 98.8, T-max 99.7, oxygen saturation 96% on 2 L oxygen by nasal cannula. Weight 149 pounds, hei ght 5 feet 7 inches, BMI 23.3. General: Mr. Krause is resting comfortably in his bed. He does have an ongoing 6-8 hertz tremor in the left more than right upper extremity, but also noted on the right upper extremity and some in th e legs. His hands shows subtle titubation. HEENT: He is normocephalic, atraumatic. Sclerae anicteric. Oropharynx is pink and moist. Neck: Supple. Chest: He has upper airway congestion on his chest, but no evidence of rales or crackles. Heart: Regular. Extremities: Show no significant edema or cyanosis. Neurologic: He is alert and oriented to situation, place, and person. Follows commands appropriatel y. Cranial nerves 2 through 12 show no obvious focal deficits. On his motor examination, the upper extremities show no focal weakness proximally and distally. He has tremor as indicated that it does come out at rest and slight improvement as he moves his hands around. Lower extremities strength is 5/5 proximally and distally. Sensory examination shows stocking-glove loss light touch temperature. Reflexes are symmetric in the upper and lower extremities. Gait, patient is ambulating because of h is unsteady gait with poor balance. Laboratory Studies: Complete blood count with differential essentially unremarkable on admission, ex cept neutrophils elevated to 83.0; and platelets low at 119, after hydration low at 99. Coagulation panel shows INR 2.59. Chemistries unremarkable. Glucose ranging 104 to 121, calcium low at 8.3, tot al bilirubin high at 1.5. Liver function studies are unremarkable except for a total bilirubin being elevated. Ammonia level is low at 18, albumin 3.1, total serum protein 5.9. Procalcitonin less susan n 0.05 and lactic acid 1.6 and is normal. Urinalysis shows 10-20 red blood cells, 5-10 epithelial ce lls, 2+ blood, 1+ ketone. Head CT scan shows no acute ischemic or hemorrhagic findings. There is di ffuse cerebral atrophy reportedly consistent with the patient's age. No specific mention of the cere bellum or cerebellar vermis or brainstem. Chest x-ray shows lungs are clear. There are borderline e nlarged. Electrocardiogram shows atrial fibrillation with low voltage QRS complex. Assessment: Mr. 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 However, his tremors do have features of both essen tial tremor and Parkinson disease. The patient has had a long history of heavy alcohol abuse and is at risk for alcohol withdrawal and delirium tremens. Plan: 1.Give the banana bag, which is folic acid, thiamine along with multivitamin. 2.Thiamine 100 mg twice a day, folate 100 mg twice a day, and multivitamin daily. 3.For his atrial fibrillation, he should be on anticoagulation. However, given the patient's histor y of reported hemorrhagic stroke and heavy alcohol use, he has high risk of bleeding in his central n ervous system, and he is at high risk of falling, which also would potentially result in bleeding, so that should be considered perhaps an aspirin 81 mg daily. Otherwise, high-dose statin, Lipitor 80 m g daily. Continue Lanoxin 0.0625 mg daily. Use Tylenol 3 as needed for pain and Zofran. He is also on Xarelto 20 mg daily and a multivitamin daily that should continue. Once patient is discharged, kalia funk may follow up in Dr. Hawk's clinic 1 month later. LORA/DIANN Voice ID: [id number] Report ID: [id number]
[2019-09-20] MEDS: ATORVASTATIN 80 MG TAB PO SCH (21:00)
[2019-09-21] MEDS: IPRATROPIUM BROM 0.5MG/2.5ML NEB SCH ×4 (01:15→19:50)
[2019-09-21] MEDS: ALBUTEROL 2.5 MG/3 ML NEB SOL NEB SCH ×4 (02:00→19:50)
[2019-09-21] MEDS: METHYLPREDNISOLONE 40 MG INJ IV SCH ×3 (05:13→17:30)
[2019-09-21 05:18] LABS: Albumin 3.2 g/dL (3.4-5.0); Bilirubin Total 1.3 mg/dL (0.2-1.0); Potassium 4.1 mmol/L (3.5-5.1); Protein, Total 6.5 g/dL (6.4-8.2)
[2019-09-21 05:22] LABS: Absolute Lymphocytes (CBC) 0.6 K/uL (0.7-4.9); Hematocrit 40.2 % (39.6-49.0); Lymphocytes % 7.6 % (15.3-44.8); MPV 10.2 fL (7.6-11.3)
[2019-09-21 05:23] LABS: Protime INR 2.92
[2019-09-21] MEDS: DIGOXIN 0.125 MG TABLET PO SCH (08:29)
[2019-09-21] MEDS: THIAMINE HCL 100 MG TABLET PO SCH (08:30)
[2019-09-21] MEDS: ASPIRIN EC 81 MG TAB PO SCH (08:30)
[2019-09-21] MEDS: FOLIC ACID 1 MG TABLET PO SCH (08:30)
[2019-09-21] MEDS: MULTIVITAMIN TAB PO SCH (08:30)
[2019-09-21] MEDS: RIVAROXABAN 20 MG TABLET PO SCH (08:53)
[2019-09-21] MEDS: OCUVITE (VIT A,C & E/LUTEIN/MINERAL) TABLET PO SCH (08:53)
[2019-09-21] MEDS ORDERED: METOPROLOL XL 50 MG TAB PO SCH ×2 (09:00→09:20)
[2019-09-21] MEDS: METOPROLOL XL 50 MG TAB PO SCH (09:55)
[2019-09-21] MEDS: BENZONATATE 100 MG CAP PO PRN (15:44)
--- NOTE | 2019-09-21 18:11 | P.PN ---
Subjective Date of Service: 09/21/19 Chief Complaint: Altered mental status Patient states he feels a lot better today. He was weaned off BiPAP yesterday and maintained on oxygen by nasal cannula overnight. He has tolerated oxygen by nasal cannula since then. His heart rate has improved. Patient transferred from the ICU to the medical floor. MRI of the brain result reviewed and reports no acute changes. His blood pressure has also been stable. Physical Examination - Vital Signs Temperature: 98 F Blood Pressure: 114/50 Pulse: 123 Respirations: 20 Pulse Ox (%): 94 - Physical Exam General: In no apparent distress, Cachectic HEENT: Mucous membr. moist/pink, Sclerae nonicteric Neck: JVD not distended Respiratory: Clear to auscultation bilaterally, Diminished Cardiovascular: Normal S1 S2, Irregular heart rate/rhythm Gastrointestinal: Normal bowel sounds, Soft and benign, No tenderness Musculoskeletal: No swelling Integumentary: No rashes Neurological: Normal speech, Other (Resting tremors of both upper and lower extremites in head.) - Studies Laboratory Data (last 24 hrs) 09/21/19 04:47: Sodium 136, Potassium 4.1, BUN 22 H, Creatinine 1.14, Glucose 145 H, Total Bilirubin 1.3 H, AST 65 H, ALT 51, Alkaline Phosphatase 73 09/21/19 04:47: PT 33.1 H, INR 2.92, APTT 39.1 H 09/21/19 04:47: WBC 8.5 D, Hgb 13.8, Hct 40.2, Plt Count 97 L Assessment And Plan - Current Problems (Diagnosis) (1) Ataxia Current Visit: Yes Status: Acute (2) COPD exacerbation Current Visit: Yes Status: Acute (3) Rapid atrial fibrillation Current Visit: Yes Status: Acute (4) Acute on chronic systolic heart failure Current Visit: Yes Status: Acute (5) Generalized weakness Current Visit: Yes Status: Acute (6) Chronic alcoholism Current Visit: Yes Status: Acute (7) Alcoholic cardiomyopathy Current Visit: Yes Status: Acute - Plan Patient states he is doing much better today. Treat COPD exacerbation scheduled nebs, IV steroids. Continue home medications for atrial fibrillation He is on Xarelto for afib Status post 1 dose IV Lasix for acute respiratory distress. Ativan p.r.n. for impending alcohol withdrawal. Thiamine and folic acid for chronic alcoholism PT and OT evaluation. Home health for PT on discharge is being considered.
[2019-09-21] MEDS ORDERED: FLUMAZENIL 0.1 MG/ML (5 mL VIAL) IV PRN (18:16)
[2019-09-21] MEDS ORDERED: LORAZEPAM 1 MG TABLET PO PRN (18:16)
[2019-09-21] MEDS ORDERED: LORAZEPAM 1 MG TABLET PO SCH (19:00)
[2019-09-21] MEDS: ACETAMINOPHEN 500 MG TAB PO PRN (19:26)
[2019-09-21] MEDS: ATORVASTATIN 80 MG TAB PO SCH (21:38)
[2019-09-21] MEDS: LORAZEPAM 1 MG TABLET PO SCH (21:39)
[2019-09-22] MEDS: METHYLPREDNISOLONE 40 MG INJ IV SCH (00:03)
[2019-09-22] MEDS: LORAZEPAM 1 MG TABLET PO SCH ×3 (01:00→09:00)
[2019-09-22] MEDS: ALBUTEROL 2.5 MG/3 ML NEB SOL NEB SCH ×4 (01:45→19:45)
[2019-09-22] MEDS: IPRATROPIUM BROM 0.5MG/2.5ML NEB SCH ×4 (01:45→19:45)
[2019-09-22] MEDS ORDERED: METOPROLOL TARTRATE 5 MG/5 ML INJ IV STA (02:49)
[2019-09-22] MEDS: BENZONATATE 100 MG CAP PO PRN (03:00)
[2019-09-22] MEDS: METOPROLOL XL 50 MG TAB PO SCH (06:28)
[2019-09-22 06:34] LABS: Absolute Lymphocytes (CBC) 0.5 K/uL (0.7-4.9); Hematocrit 38.6 % (39.6-49.0); Lymphocytes % 3.5 % (15.3-44.8); MPV 11.1 fL (7.6-11.3); RBC Red Blood Cell Count 4.07 M/uL (4.33-5.43)
[2019-09-22 06:50] LABS: Magnesium 2.3 mg/dL (1.8-2.4); Phosphorus 2.4 mg/dL (2.5-4.9); Potassium 4.1 mmol/L (3.5-5.1)
[2019-09-22 07:28] LABS: Platelet Estimate DECR
[2019-09-22 07:29] LABS: Blood Morphology Comment NOT SEEN (NOT SEEN); Toxic Granulation 1+
[2019-09-22] MEDS: THIAMINE HCL 100 MG TABLET PO SCH (08:31)
[2019-09-22] MEDS: ASPIRIN EC 81 MG TAB PO SCH (08:31)
[2019-09-22] MEDS: DIGOXIN 0.125 MG TABLET PO SCH (08:31)
[2019-09-22] MEDS: RIVAROXABAN 20 MG TABLET PO SCH (08:31)
[2019-09-22] MEDS: MULTIVITAMIN TAB PO SCH (08:32)
[2019-09-22] MEDS: OCUVITE (VIT A,C & E/LUTEIN/MINERAL) TABLET PO SCH (08:32)
[2019-09-22] MEDS: FOLIC ACID 1 MG TABLET PO SCH (08:32)
[2019-09-22] MEDS: predniSONE 20 MG TAB PO SCH ×2 (08:32→20:34)
[2019-09-22] MEDS: POTASS/SODIUM PHOSPHATE 1 PKT POWD.PACK PO SCH ×3 (09:10→11:14)
[2019-09-22] MEDS: ATORVASTATIN 80 MG TAB PO SCH (20:33)
--- NOTE | 2019-09-22 22:49 | CON ---
Date of Consultation: 09/21/2019 Reason For Consultation: Cardiomyopathy, history of atrial fibrillation, weakness, and ataxia. History Of Present Illness: Mr. Krause is 69-year-old, has a history of alcoholic cardiomyopathy, c hronic diastolic congestive heart failure, diabetes, COPD, atrial fibrillation. He came in mostly wi th ataxia and loss of balance. There is a neurological consultation pending. Patient denied any car diac symptoms. He denied any chest pain, shortness of breath, palpitations, syncope. Denied PND, or thopnea, pedal edema. Past Medical History: As stated above. Allergies: HE IS ALLERGIC TO PENICILLIN AND TETANUS TOXOID. Medications: At home include aspirin, inhalers, digoxin, Lasix, metoprolol, and Xarelto. He is now in addition to the above on Cardizem and steroids. Review of Systems: Negative. Social History: Positive for history of alcohol use. Family History: Noncontributory. Physical Examination: General: Mr. Krause was noted to have tremors throughout, but was alert and oriented x3. Vital Signs: Stable. He was in chronic atrial fibrillation. When I saw him, his rate was 80. HEENT: Negative. Neck: Supple. No bruit. Chest: Clear. Cardiac: Revealed atrial fibrillation. Abdomen: Benign. Extremities: Revealed no clubbing, cyanosis, or edema. Skin: Dry and intact. Neurologic: He appear to be having tremors. Pulses are present distally bilaterally. Impression And Plan: 1.Chronic diastolic congestive heart failure, stable, presumed secondary to alcoholic cardiomyopathy . 2.Atrial fibrillation that is chronic, on metoprolol and Xarelto. Rate is better controlled after d igoxin and Cardizem. I would continue medical therapy. 3.Diabetes. 4.Chronic obstructive pulmonary disease. 5.Tremors being evaluated by Neurology. This certainly could be essential tremor or parkinsonism or some cerebellar issue. We will continue to follow him. KEON/MODL Voice ID: [id number] Report ID: [id number]
--- NOTE | 2019-09-22 22:55 | PN ---
Date of Progress Note: 09/22/2019 Mr. Krause had come in with ataxia, has chronic CHF, atrial fibrillation, COPD, and diabetes. All o f those are stable. Dr. Hawk saw the patient and he thinks that the ataxia is secondary to cereb ellar involvement, may be parkinsonism or essential tremors. Nevertheless, he thought that he was at high risk for delirium tremens and so he was given thiamine, banana bag with folate, and multivitami ns. Cardiac-roman, he is stable. I will sign off his case for now. NB/MODL Voice ID: [id number] Report ID: [id number]
[2019-09-23] MEDS: IPRATROPIUM BROM 0.5MG/2.5ML NEB SCH ×4 (02:25→19:40)
[2019-09-23] MEDS: ALBUTEROL 2.5 MG/3 ML NEB SOL NEB SCH ×4 (02:25→19:40)
[2019-09-23 06:04] LABS: Phosphorus 3.6 mg/dL (2.5-4.9); Potassium 3.7 mmol/L (3.5-5.1)
[2019-09-23] MEDS: METOPROLOL XL 50 MG TAB PO SCH (06:08)
[2019-09-23] MEDS: DIGOXIN 0.125 MG TABLET PO SCH (08:47)
[2019-09-23] MEDS: ASPIRIN EC 81 MG TAB PO SCH (08:47)
[2019-09-23] MEDS: OCUVITE (VIT A,C & E/LUTEIN/MINERAL) TABLET PO SCH (08:48)
[2019-09-23] MEDS: MULTIVITAMIN TAB PO SCH (08:48)
[2019-09-23] MEDS: FOLIC ACID 1 MG TABLET PO SCH (08:48)
[2019-09-23] MEDS: RIVAROXABAN 20 MG TABLET PO SCH (08:48)
[2019-09-23] MEDS: THIAMINE HCL 100 MG TABLET PO SCH (08:48)
[2019-09-23] MEDS: predniSONE 20 MG TAB PO SCH ×2 (08:48→20:38)
[2019-09-23] MEDS ORDERED: POTASSIUM CL SA 10 MEQ TAB PO ONE (09:00)
--- NOTE | 2019-09-23 10:30 | P.PN ---
Subjective Date of Service: 09/23/19 Chief Complaint: Altered mental status The patient noted to be confused since yesterday. He has tolerated oxygen by nasal cannula. His heart rate has improved. He could be withdrawing from alcohol. Physical Examination - Vital Signs Temperature: 99.5 F Blood Pressure: 110/76 Pulse: 108 Respirations: 20 Pulse Ox (%): 87 - Physical Exam General: Cachectic, Confused HEENT: Mucous membr. moist/pink Respiratory: Clear to auscultation bilaterally, Normal air movement Cardiovascular: No edema Gastrointestinal: Soft and benign, No tenderness - Studies Microbiology Data (last 24 hrs): 09/20/19 17:30 Catheterized Urine Salvo Count - Final <10,000 CFU/ML. 09/20/19 17:30 Catheterized Urine - Final No growth. Assessment And Plan - Current Problems (Diagnosis) (1) Ataxia Current Visit: Yes Status: Acute (2) COPD exacerbation Current Visit: Yes Status: Acute (3) Rapid atrial fibrillation Current Visit: Yes Status: Acute (4) Acute on chronic systolic heart failure Current Visit: Yes Status: Acute (5) Generalized weakness Current Visit: Yes Status: Acute (6) Chronic alcoholism Current Visit: Yes Status: Acute (7) Alcoholic cardiomyopathy Current Visit: Yes Status: Acute (8) Alcohol withdrawal delirium Current Visit: Yes Status: Acute - Plan COPD exacerbation scheduled nebs. Change IV steroids to oral prednisone Continue home medications for atrial fibrillation He is on Xarelto for afib Status post 1 dose IV Lasix for acute respiratory distress. [facility] protocol initiated Thiamine and folic acid for chronic alcoholism PT and OT evaluation. Home health for PT on discharge is being considered.
[2019-09-23 16:08] LABS: Urine Appearance CLEAR; Urine Blood 3+ (NEG); Urine Color DK YELLOW; Urine Glucose NEGATIVE (NEG); Urine Protein TRACE (NEG); Urine Specific Gravity >=1.030 (1.005-1.030)
[2019-09-23 16:23] LABS: Urine Bilirubin NEGATIVE (NEG); Urine Microscopic Reflex NO UMIC
[2019-09-23 16:39] LABS: Urine Bacteria <20 /HPF (NONE SEEN); Urine Culture Reflex Order NOT NEEDED; Urine Mucus LIGHT /HPF (NONE SEEN); Urine RBC 20-50 /HPF (NONE SEEN)
[2019-09-23] MEDS ORDERED: LORAZEPAM 1 MG TABLET PO SCH (18:19)
[2019-09-23] MEDS: BENZONATATE 100 MG CAP PO PRN (20:38)
[2019-09-23] MEDS: ATORVASTATIN 80 MG TAB PO SCH (20:38)
[2019-09-24] MEDS: ALBUTEROL 2.5 MG/3 ML NEB SOL NEB SCH ×4 (01:30→19:30)
[2019-09-24] MEDS: IPRATROPIUM BROM 0.5MG/2.5ML NEB SCH ×4 (01:30→19:30)
[2019-09-24 05:01] LABS: Absolute Lymphocytes (CBC) 0.6 K/uL (0.7-4.9); Basophils % 0.1 % (0-1.3); Hematocrit 36.2 % (39.6-49.0); Lymphocytes % 6.1 % (15.3-44.8); MPV 10.1 fL (7.6-11.3); RBC Red Blood Cell Count 3.84 M/uL (4.33-5.43)
[2019-09-24 05:15] LABS: BUN Blood Urea Nitrogen 18 mg/dL (7-18); Bicarbonate 31 mmol/L (21-32); Glucose Level 108 mg/dL (74-106); Potassium 3.9 mmol/L (3.5-5.1); Sodium Level 135 mmol/L (136-145)
[2019-09-24] MEDS: METOPROLOL XL 50 MG TAB PO SCH (05:41)
[2019-09-24] MEDS ORDERED: POTASSIUM CL SA 10 MEQ TAB PO ONE (09:00)
[2019-09-24] MEDS: ASPIRIN EC 81 MG TAB PO SCH (09:15)
[2019-09-24] MEDS: RIVAROXABAN 20 MG TABLET PO SCH (09:16)
[2019-09-24] MEDS: DIGOXIN 0.125 MG TABLET PO SCH (09:16)
[2019-09-24] MEDS: THIAMINE HCL 100 MG TABLET PO SCH (09:17)
[2019-09-24] MEDS: MULTIVITAMIN TAB PO SCH (09:17)
[2019-09-24] MEDS: FOLIC ACID 1 MG TABLET PO SCH (09:17)
[2019-09-24] MEDS: OCUVITE (VIT A,C & E/LUTEIN/MINERAL) TABLET PO SCH (09:17)
[2019-09-24] MEDS: predniSONE 20 MG TAB PO SCH ×2 (09:17→20:04)
--- NOTE | 2019-09-24 11:40 | P.DS ---
Admission Date: 09/21/19 Discharge Date: 09/25/19 Disposition: [facility] HOME/HOME HEALTH CARE Discharge Condition: FAIR Reason for Admission: Altered mental status - Problems (1) Ataxia Status: Acute (2) COPD exacerbation Status: Acute (3) Rapid atrial fibrillation Status: Acute (4) Acute on chronic systolic heart failure Status: Acute (5) Generalized weakness Status: Acute (6) Chronic alcoholism Status: Acute (7) Alcoholic cardiomyopathy Status: Acute (8) Alcohol withdrawal delirium Status: Acute Brief History of Present Illness: 69-year-old gentleman with a history of chronic alcoholism and tremors was brought to the ED due to complaint of sudden increase in weakness and tremors. Per family, patient with a history of chronic tremors of both extremities and trunk, initially able to walk, now could not stand up and walk and will crumple to the floor whenever he was assisted up. He has a history of hemorrhagic stroke and alcoholic cardiomyopathy with an ejection fraction of 20%. He has been taking Xarelto for atrial fibrillation. CT head done in the ED was unremarkable and showed no acute disease. There was a concern for a new stroke. Patient was admitted for further management. Hospital Course: Stroke workup with MRI of the brain resulted no acute disease. It did report cerebral atrophy. Patient was seen and evaluated by Dr. Hawk-neurologist who attributed patient's decline in functional status and increase in tremors from progression of alcohol-related neurologic disease. He was placed on thiamine, folic acid and multivitamins. He developed rapid atrial fibrillation briefly and also acute respiratory failure secondary to COPD exacerbation. He was placed on BiPAP and transferred to the ICU briefly. His respiratory status improved with treatment for COPD exacerbation, was weaned off BiPAP to oxygen by nasal cannula and later transferred to the floor. He developed acute urinary retention, had a Huber catheter placed and started on Flomax. He was unable to void after Huber catheter. Patient was able to ambulate with physical therapy unassisted. He has clinically improved and deemed stable for discharge. The patient is discharged with Huber catheter in place. He is informed to follow with Dr. Montoya within 2 weeks for further management of acute urinary retention. The patient preferred not to go home with oxygen therapy. Vital Signs/Physical Exam: Temp Pulse Resp BP Pulse Ox 98.1 F 93 H 20 107/58 L 94 09/24/19 08:00 09/24/19 08:00 09/24/19 08:00 09/24/19 08:00 09/24/19 08:00 General: In no apparent distress, Oriented x3 HEENT: Mucous membr. moist/pink, Sclerae nonicteric Neck: Supple, JVD not distended Respiratory: Clear to auscultation bilaterally, Normal air movement Cardiovascular: No edema, Normal S1 S2, Irregular heart rate/rhythm Gastrointestinal: Normal bowel sounds, Soft and benign, Non-distended Musculoskeletal: No clubbing Integumentary: No rashes Neurological: Normal speech, Other (Coarse tremors of upper and lower extremities) Laboratory Data at Discharge: WBC 9.4 K/uL (4.3-10.9) D 09/24/19 04:27 Hgb 12.5 g/dL (13.6-17.9) L 09/24/19 04:27 Hct 36.2 % (39.6-49.0) L 09/24/19 04:27 Plt Count 115 K/uL (152-406) L 09/24/19 04:27 PT 33.1 SECONDS (9.5-12.5) H 09/21/19 04:47 INR 2.92 09/21/19 04:47 APTT 39.1 SECONDS (24.3-36.9) H 09/21/19 04:47 Sodium 135 mmol/L (136-145) L 09/24/19 04:27 Potassium 3.9 mmol/L (3.5-5.1) 09/24/19 04:27 BUN 18 mg/dL (7-18) 09/24/19 04:27 Creatinine 0.78 mg/dL (0.55-1.3) 09/24/19 04:27 Glucose 108 mg/dL (74-106) H 09/24/19 04:27 Phosphorus 3.6 mg/dL (2.5-4.9) 09/23/19 05:31 Magnesium 2.3 mg/dL (1.8-2.4) 09/22/19 05:22 Total Bilirubin 1.3 mg/dL (0.2-1.0) H 09/21/19 04:47 AST 65 U/L (15-37) H 09/21/19 04:47 ALT 51 U/L (12-78) 09/21/19 04:47 Alkaline Phosphatase 73 U/L (45-117) 09/21/19 04:47 Lipase 36 U/L (73-393) L 09/19/19 21:05 Home Medications: Aspirin [Aspirin EC 81 MG] 1 tab PO DAILY 09/20/19 Atorvastatin Calcium [Lipitor] 1 tab PO BEDTIME 09/20/19 Digoxin [Lanoxin*] 0.5 tab PO DAILY 09/20/19 Furosemide [Lasix*] 1 tab PO DAILY 09/20/19 Lisinopril [Zestril] 1 tab PO DAILY 09/20/19 Metoprolol Succinate [Toprol Xl*] 1 tab PO DAILY 09/20/19 Rivaroxaban [Xarelto] 1 tab PO DAILY 09/20/19 Spironolactone [Aldactone*] 0.5 tab PO DAILY 09/20/19 Vit C/[place] AC/Lut/Copper/Znox [Preservision Lutein Softgel] 1 cap PO BID Albuterol Neb [Proventil 0.083% Neb Soln] 2.5 mg NEB [id number] PRN #90 amp Benzonatate [Tessalon Perle*] 200 mg PO TID PRN #30 cap 09/24/19 Tamsulosin [Flomax*] 0.4 mg PO BEDTIME #30 cap 09/24/19 Thiamine HCl [Vitamin B-1*] 100 mg PO DAILY #30 tablet 09/24/19 Tiotropium Br/Olodaterol HCl [Stiolto Respimat Inhal [place]] 4 gm IH DAILY #30 mist.inhal 09/24/19 predniSONE [Prednisone*] 20 mg PO BID #8 tab 09/24/19 New Medications: Albuterol Neb [Proventil 0.083% Neb Soln] 2.5 mg NEB [id number] PRN #90 amp PRN Reason: Wheezing Benzonatate [Tessalon Perle*] 200 mg PO TID PRN #30 cap PRN Reason: Cough predniSONE [Prednisone*] 20 mg PO BID #8 tab Tamsulosin [Flomax*] 0.4 mg PO BEDTIME #30 cap Thiamine HCl [Vitamin B-1*] 100 mg PO DAILY #30 tablet Tiotropium Br/Olodaterol HCl [Stiolto Respimat Inhal [place]] 4 gm IH DAILY #30 mist.inhal Diet: AHA Activity: Fall precautions Followup: Kushal Andino MD [ACTIVE - CAN ADMIT] - 1-2 Weeks Time spent managing pt's care (in minutes): 42
[2019-09-24] MEDS: BENZONATATE 100 MG CAP PO PRN ×2 (18:18→23:42)
[2019-09-24] MEDS: ATORVASTATIN 80 MG TAB PO SCH (20:03)
[2019-09-24] MEDS ORDERED: TAMSULOSIN 0.4 MG SR CAP PO SCH (21:00)
[2019-09-25] MEDS: IPRATROPIUM BROM 0.5MG/2.5ML NEB SCH ×2 (01:33→08:00)
[2019-09-25] MEDS: ALBUTEROL 2.5 MG/3 ML NEB SOL NEB SCH ×2 (01:33→08:00)
[2019-09-25] MEDS: METOPROLOL XL 50 MG TAB PO SCH (05:15)
[2019-09-25 05:23] VITALS: BMI 22.4
[2019-09-25 08:23] VITALS: BP 106/67; TEMP 97.7
[2019-09-25 14:10] VITALS: O2SAT 96
--- NOTE | 2019-10-16 19:35 | P.PN ---
Subjective Date of Service: 09/22/19 Chief Complaint: Altered mental status Subjective: New changes Not confused. He is awake. He has tolerated oxygen by nasal cannula. His heart rate has improved. Physical Examination - Vital Signs Temperature: 97.7 F Blood Pressure: 106/67 Pulse: 93 Respirations: 18 Pulse Ox (%): 91 - Physical Exam General: In no apparent distress, Oriented x3 HEENT: Mucous membr. moist/pink Neck: Supple, JVD not distended Respiratory: Clear to auscultation bilaterally, Normal air movement Cardiovascular: No edema, Irregular heart rate/rhythm Capillary refill: <2 Seconds Gastrointestinal: Normal bowel sounds, Soft and benign, No tenderness Musculoskeletal: No swelling Integumentary: No erythema Neurological: Normal speech, Normal strength at 5/5 x4 extr Assessment And Plan - Current Problems (Diagnosis) (1) Ataxia Status: Acute (2) COPD exacerbation Status: Acute (3) Rapid atrial fibrillation Status: Acute (4) Acute on chronic systolic heart failure Status: Acute (5) Generalized weakness Status: Acute (6) Chronic alcoholism Status: Acute (7) Alcoholic cardiomyopathy Status: Acute (8) Alcohol withdrawal delirium Status: Acute (9) Acute metabolic encephalopathy Status: Acute (10) Acute respiratory failure with hypoxemia Status: Acute - Plan Continue scheduled nebs. Continue steroid Continue home medications for atrial fibrillation He is on Xarelto for afib Status post 1 dose IV Lasix for acute respiratory distress. [facility] protocol initiated Thiamine and folic acid for chronic alcoholism PT and OT evaluation. Dr. Hawk to see patient. Oxygen as needed. Home health for PT on discharge is being considered.
--- NOTE | 2019-10-16 19:45 | P.PN ---
Subjective Date of Service: 09/24/19 Chief Complaint: Altered mental status His mental status have improved. He has been tolerating room air at rest. He ambulated with physical therapy. . Physical Examination - Vital Signs Temperature: 97.7 F Blood Pressure: 106/67 Pulse: 93 Respirations: 18 Pulse Ox (%): 91 - Physical Exam General: In no apparent distress, Oriented x3 HEENT: Mucous membr. moist/pink Neck: Supple, JVD not distended Respiratory: Clear to auscultation bilaterally, Normal air movement Cardiovascular: No murmurs, Irregular heart rate/rhythm Gastrointestinal: Normal bowel sounds, Soft and benign, No tenderness Musculoskeletal: No swelling Integumentary: No erythema Neurological: Normal speech, Normal strength at 5/5 x4 extr Assessment And Plan - Current Problems (Diagnosis) (1) Ataxia Status: Acute (2) COPD exacerbation Status: Acute (3) Rapid atrial fibrillation Status: Acute (4) Acute on chronic systolic heart failure Status: Acute (5) Generalized weakness Status: Acute (6) Chronic alcoholism Status: Acute (7) Alcoholic cardiomyopathy Status: Acute (8) Alcohol withdrawal delirium Status: Acute (9) Acute metabolic encephalopathy Status: Acute (10) Acute respiratory failure with hypoxemia Status: Acute - Plan Continue scheduled nebs. Continue steroid Continue home medications for atrial fibrillation He is on Xarelto for afib Status post 1 dose IV Lasix for acute respiratory distress. [facility] protocol initiated Thiamine and folic acid for chronic alcoholism PT and OT evaluation. Dr. Hawk seen patient. Ataxia is attributed to the hans term effect of alcohol. No further recommendation from Dr. Hawk Oxygen as needed. Planning Home health for PT.
== END 2019-09-25 12:10 | disposition home health service (06) | DRG 896 ==
LOC: ER 19:59 → ERHOLD 09-20 00:58 → 2ND 09-20 01:50 → 3RD-ICU 09-20 16:45 → OBSVTOIN 09-21 07:29 → 2ND 09-21 10:20
PROVIDERS: ADMIT Hospitalist; ATTEND Internal Medicine
PROC: 5A09357 Assistance with Respiratory Ventilation, Less than 24 Consecutive Hours, Continuous Positive Airway Pressure (ICD-10-PCS; principal; 2019-09-20)
DX: F10.231 Alcohol dependence with withdrawal delirium (principal); I50.23 Acute on chronic systolic (congestive) heart failure; J96.01 Acute respiratory failure with hypoxia; I69.359 Hemiplegia and hemiparesis following cerebral infarction affecting unspecified side; I42.6 Alcoholic cardiomyopathy; J44.1 Chronic obstructive pulmonary disease with (acute) exacerbation; R25.1 Tremor, unspecified; R27.8 Other lack of coordination; E11.9 Type 2 diabetes mellitus without complications; I48.91 Unspecified atrial fibrillation; F17.210 Nicotine dependence, cigarettes, uncomplicated
CPT/HCPCS: 36415; 70450; 70551; 71045; 80048; 80053; 80076; 81003; 81015; 82140; 82550; 82553; 82805; 82947; 83605; 83690; 83735; 83880; 84100; 84145; 84484; 85025; 85610; 85730; 87040; 87086; 87088; 93005; 94640; 94660; 94760; 96360; 96361; 96365; 96366; 97112; 97116; 97161; 97164; 99285; G0378; J1940; J2920; J3411; J7030; J7512